=== PATIENT | female | born 1935 | race Caucasian/White ===

== ENCOUNTER 2020-11-07 19:04 | Observation (INO) ==
[2020-11-08] MEDS ORDERED: Naloxone 0.4 MG/ML INJ IVP PRN ×2 (00:32→10:53)
[2020-11-08] MEDS ORDERED: Melatonin 3 MG TABLET PO PRN ×2 (00:32→10:53)
[2020-11-08] MEDS ORDERED: Ondansetron 4 MG/2 ML VIAL IVP PRN ×3 (00:32→10:53)
[2020-11-08] MEDS ORDERED: Acetaminophen 325 MG TABLET PO PRN ×2 (04:00→10:53)
[2020-11-08] MEDS ORDERED: D5% in Water 1,000 ML IVC PRN ×2 (04:22→10:53)
[2020-11-08] MEDS ORDERED: Dextrose Gel 15 GM/37.5 ML TUBE PO PRN ×4 (04:22→10:53)
[2020-11-08] MEDS ORDERED: *HR* Dextrose 50 % in Water (Vial) 50 ML VIAL IVP PRN ×2 (04:22→10:53)
[2020-11-08] MEDS ORDERED: 0.9 % Sodium Chloride 1,000 ML IVC SCH ×2 (04:30→10:53)
[2020-11-08 05:24] LABS: Basophils % 0.2 %; Eosinophils # 0.1 K/mcL (0.0-0.6); Eosinophils % 1.4 %; Hematocrit 39.4 % (35.3-44.9); Hemoglobin 12.6 g/dL (11.5-15.4); Immature Granulocytes % 0.3 % (0-4); Lymphocytes # 1.3 K/mcL (0.6-4.6); Mean Corpuscular Hemoglobin 29.8 pg (28.0-33.3); Mean Corpuscular Volume 93.1 fL (83.0-100.0); Mean Platelet Volume 9.4 fL (9.4-12.4); Monocytes # 0.9 K/mcL (0.0-1.3); Monocytes % 10.5 %; Neutrophils # 6.4 K/mcL (1.6-8.9); Platelet Count 190 K/mcL (140-400); Red Blood Count 4.23 M/mcL (3.82-4.97); Segmented Neutrophils % 72.6 %; White Blood Count 8.8 K/mcL (4.3-11.1)
[2020-11-08 05:34] LABS: INR 1.1; Prothrombin Time 12.4 Seconds (9.4-12.1)
[2020-11-08 05:41] LABS: Albumin 3.9 g/dL (3.5-5.7); Albumin/Globulin Ratio 1.6 (1.1-2.2); Bilirubin,Total 0.4 mg/dL (0.3-1.0); Calcium 9.2 mg/dL (8.6-10.3); Globulin 2.4 g/dL (2.4-3.5); Magnesium 1.8 mg/dL (1.6-2.6); Phosphorous 3.6 mg/dL (2.7-4.5); Potassium 4.2 mEq/L (3.5-5.1); Total Protein 6.3 g/dL (6.4-8.9)
[2020-11-08] MEDS ORDERED: Insulin LISPRO 300 UNITS/3 ML VIAL SUBQ SCH ×2 (06:00→12:00)
[2020-11-08] MEDS ORDERED: Lidocaine -MPF 2% 2 ML VIAL ONE (07:36)
[2020-11-08] MEDS ORDERED: *HR* Succinylcholine 200 MG/10 ML VIAL IVP ONE (07:36)
[2020-11-08] MEDS ORDERED: *HR* FentaNYL (PF) 100 MCG/2 ML VIAL ONE (07:36)
[2020-11-08] MEDS ORDERED: *HR* Propofol 200 MG/20 ML VIAL IVP ONE (07:36)
[2020-11-08] MEDS ORDERED: Ondansetron 4 MG/2 ML VIAL ONE (07:36)
[2020-11-08] MEDS ORDERED: Isovue-300 50ML VIAL ONE (07:44)
[2020-11-08] MEDS ORDERED: *HR* FentaNYL (PF) 100 MCG/2 ML VIAL IVP PRN (09:01)
[2020-11-08] MEDS ORDERED: Ringers Solution, Lactated 1,000 ML IVC SCH (09:15)
[2020-11-08] MEDS ORDERED: CeFAZolin Syr 2,000MG/20 ML 2,000 MG/20 ML SYRINGE IVPB ONE (09:39)
[2020-11-08 12:07] VITALS: BP 138/63
[2020-11-11 08:01] LABS: Calculi Mass 20 mg
== END 2020-11-08 14:46 | disposition home health service (06) ==
LOC: 3ANU → SUATTDRO 11-08 00:04
PROVIDERS: ADMIT Internal Medicine; ATTEND Internal Medicine